=== PATIENT | female | born 1975 | race African-American/Black ===

== ENCOUNTER 2023-08-06 09:15 | Emergency (ER) | payer OTHER, SELFPAY ==
[2023-08-06 09:42] VITALS: BP 141/68; PULSE 75; RESP 18; TEMP 36.2; O2SAT 100
--- NOTE | 2023-08-06 12:03 | ED.ASTHMA ---
HPI - Asthma General Chief Complaint: Asthma Stated Complaint: Asthma Time Seen by Provider: 08/06/23 11:55 History of Present Illness HPI Narrative: Patient is a 47-year-old female with history of asthma here with shortness of breath. Patient states that for the last 1 week she has had worsening shortness of breath and cough. She notes that she has some post tussis midsternal chest pain which resolves when she is not coughing. She notes a mildly productive cough, unsure of what the sputum looks like. No fever, chills, sick contacts. She notes this feels very similar to her prior asthma exacerbations which usually occur with changes of whether about the same time every year. She does follow with a real estate agent/broker and has a follow-up appointment in 10 days with them. She has been using her home nebulizers, notes that has been helping a bit over the last week but since her symptoms persisted she came into the emergency department for evaluation. She has been on steroids for asthma in the past, has not been on them for a while. She believes she may have been hospitalized for her asthma as a child but has not in many years. No prior cardiac history. No PE risk factors. Related Data Home Medications Medication Instructions Recorded Confirmed albuterol sulfate 90 mcg/actuation inhalation 08/06/23 aerosol inhaler atorvastatin 40 mg tablet mg 08/06/23 benzonatate 100 mg capsule mg PO 08/06/23 budesonide-formoterol HFA 160 inhalation 08/06/23 08/06/23 mcg-4.5 mcg/actuation aerosol inhaler (Symbicort) fluticasone propionate 50 intranasal 08/06/23 mcg/actuation nasal spray,suspension ipratropium 0.5 mg-albuterol 3 mg ml inhalation 08/06/23 (2.5 mg base)/3 mL nebulization soln norethindrone acetate 5 mg tablet mg 08/06/23 Allergies Allergy/AdvReac Type Severity Reaction Status Date / Time meloxicam Allergy Unknown Verified 08/06/23 09:17 Review of Systems Review of Systems: CONSTITUTIONAL: Denies fever, chills, or sweats. EYES: Denies visual changes, redness, or discharge. ENT: Denies rhinorrhea, congestion, sore throat, or otalgia. CARDIOVASCULAR: chest pain, NO palpitations, or edema. RESPIRATORY: cough AND dyspnea. GASTROINTESTINAL: Denies abdominal pain, nausea, vomiting, or diarrhea. SKIN: Denies rash or itching. MUSCULOSKELETAL: Denies back pain, joint pain, or myalgia. NEUROLOGIC: Denies headache, numbness, or weakness. PSYCHIATRIC: Denies anxiety or depression. Exam Narrative: GENERAL: Well-appearing, well-nourished, and in no acute distress. HEAD: Normocephalic, atraumatic. EYES: PERRLA and EOMI. ENT: Nares clear. Mucous membranes moist. NECK: Supple. CHEST: Wheeze bilaterally. No respiratory distress. HEART: Regular rate and rhythm. Normal peripheral pulses. ABDOMEN: Soft, nontender, nondistended. EXTREMITIES: Normal range of motion. No edema. SKIN: Warm, dry, no rash. NEURO: No focal deficits. Alert and oriented x3. PSYCH: Normal mood and affect. Course Course Emergency Course: Chart review performed. Patient here for shortness of breath and chest heaviness/ tightness. Productive cough. Triage vitals within normal limits. Patient seen evaluated, calm and comfortable. She is wheezing bilaterally on exam however does not appear to be in respiratory distress. Afebrile, no sick contacts. Do not believe that a chest x-ray is indicated as this appears to be consistent with her prior asthma exacerbations. Not suspicious for ACS, no prior cardiac history and lack of cardiac risk factors. Duoneb and prednisone ordered. Anticipate discharge. Patient re-evaluated, much better air movement with decreased wheeze after breathing treatment here. Will be discharged with prednisone. Advised close follow-up with primary care doctor and her real estate agent/broker. She notes she has had of nebulizer treatments at home, does not need a refill at this time. The results of pertinent margarita
[2023-08-06] MEDS: predniSONE 20 MG TABLET 40 MG PO (12:39)
[2023-08-06 12:42] VITALS: PULSE 64; RESP 16
[2023-08-06] MEDS: ALBUTEROL SULFATE NEB 2.5 MG/3 ML INH INHALATION (12:42)
[2023-08-06] MEDS: IPRATROPIUM BR 0.02% INH SOLN 0.5 MG/2.5 ML VIAL INHALATION (12:42)
[2023-08-06 12:54] VITALS: PULSE 72; RESP 16
[2023-08-06 13:52] VITALS: BP 143/92; PULSE 71; RESP 18; O2SAT 97
== END 2023-08-06 13:55 | disposition home or self-care (01) ==
PROVIDERS: Emergency Provider Student in an Organized Health Care Education/Training Program; PCP Family Medicine
DX: J45.901 Unspecified asthma with (acute) exacerbation (principal)
CPT/HCPCS: 94640; 99283; J7512